=== PATIENT | female | born 1945 | race Caucasian/White ===

== ENCOUNTER → 2017-04-15 | Day surgery (SDC) | payer MEDICARE, OTHER ==
[~2017-04-15] VITALS: Ht 165.1 cm; Wt 60.3 kg
[~2017-04-15] MED LIST: 0.9% Sodium Chloride 1,000 ML IV SCH; KEN25CR EXT; Sodium Chloride LOK Flush 10 mL Syringe IV PRN; fentaNYL-PF 50 mCg/mL 2 mL Inj IVPUSH PRN
[2017-04-15 08:28] VITALS: BP 130/85; PULSE 60; O2SAT 99
[2017-04-15 09:40] VITALS: BP 112/69; PULSE 58; RESP 16; O2SAT 98
[2017-04-15 09:50] VITALS: BP 113/69; PULSE 57; RESP 16; O2SAT 99
[2017-04-15 09:59] VITALS: BP 131/76; PULSE 54; RESP 16; O2SAT 100
--- NOTE | 2017-04-15 10:11 | ENDO ---
[address] [address] ENDOSCOPY PROCEDURE PATIENT: SEGUN CASTELLANOS : 1945 MR#: [id number] ADMIT: 04/15/2017 JOB ID: [id number] DATE OF SERVICE: 04/15/2017 PROCEDURE PERFORMED: Colonoscopy. INDICATIONS: Screening. ASA CLASSIFICATION: The patient's ASA classification is I. MALLAMPATI SCORE: Mallampati score was 2. MEDICATIONS: 1. Versed 5 mg. 2. Fentanyl 100 mcg. INSTRUMENT USED: PCF-H180AL. PREPARATION QUALITY: Good. PROCEDURE DETAILS: After informed consent was obtained, the patient was brought to the GI suite, where she was placed on oxygen via nasal cannula and monitored with continuous pulse oximeter, telemetry, and blood pressure monitoring. A time-out was performed. Then, she was placed in the left lateral decubitus position and medications were administered for sedation. Digital rectal exam was performed which was unremarkable. The colonoscope was then inserted into the rectum and advanced under direct visualization to the cecum, which was identified by the presence of the ileocecal valve and appendiceal orifice. Once the cecum was reached, the colonoscope was withdrawn back into the rectum, as the mucosa and lumen were examined. In the rectum, retroflexion was performed. Following retroflexion, remaining air in the rectum was suctioned, and procedure was completed. FINDINGS: 1. In the transverse colon there was an approximately 5 mm sessile polyp that was removed with a cold snare. 2. In the descending colon there was a 3 mm sessile polyp that was removed with a cold snare. 3. Left-sided diverticula were seen throughout the left side of the colon. IMPRESSION: 1. Transverse colon polyp. 2. Descending polyp. 3. Left-sided diverticulosis. RECOMMENDATIONS: 1. Fiber-rich diet. 2. Repeat colonoscopy in five years. COMPLICATIONS: None. ESTIMATED BLOOD LOSS: Less than 5 mL.
--- NOTE | 2017-04-16 17:01 | PATH ---
SURGICAL PATHOLOGY Attending Physician:Josue Lopez CASE STATUS: Signed Out PATIENT NAME: SEGUN CASTELLANOS PID: [id number] : 1945 DATE COLLECTED:04/15/2017 19:47 SPECIMEN: Colon, Polyp CLINICAL HISTORY: 1). TRANSVERSE POLYP/DESCENDING POLYP X 2 (SAME JAR) FINAL DIAGNOSIS: Transverse Colon Polyp, Descending Colon Polyp, Polypectomies: Tubular adenoma x2. ICD10: D12.3 D12.4 GROSS DESCRIPTION: The specimen is received in one formalin filled container labeled with the patient's name, sublabeled "transverse polyp/descending polyp (same jar) x2" and consists of 2 portions of tissue which aggregate to 0.3 x 0.2 x 0.2 CM. The specimen is entirely submitted in one cassette. 04/15/2017UT ICD-9 CODES: CPT CODES: 1: 99583 Electronically Signed Out Ankur Mcnally MD, Ph.D. [facility] Pathology [facility] [address], [place] [address] Technical component performed at [facility], [facility] [address], [address]
== END | disposition home or self-care (01) ==
LOC: END 01:18
PROVIDERS: ATTEND Internal Medicine Gastroenterology
DX: Z12.11 Encounter for screening for malignant neoplasm of colon (principal); D12.3 Benign neoplasm of transverse colon; D12.4 Benign neoplasm of descending colon; K57.30 Diverticulosis of large intestine without perforation or abscess without bleeding
CPT/HCPCS: 45385; 88305; 99153; G0500; J2250; J3010; J7030